=== PATIENT | female | born 1960 | race Caucasian/White ===

== ENCOUNTER 2019-02-19 18:56 | Emergency (ER) | payer MEDICAID, SELFPAY ==
[2019-02-19 19:00] VITALS: BP 155/71; PULSE 86; RESP 16; TEMP 36.5; O2SAT 100
--- NOTE | 2019-02-19 19:12 | ED.GENADUL_ITS ---
Discharge Plan Disposition Patient Disposition: HOME Condition: Stable Discharge Details Chief Complaint: Laceration Clinical Impression: Laceration of foot, left Primary Care Provider: Hayden Zapata ED Provider: Osei Zhang Home Meds and New Rx's Prescriptions: Continued cetirizine [Zyrtec] 10 MG tablet 10 mg PO DAILY RF: 0 Discharge Instructions Instructions: Laceration (ED) Additional Instructions: return in 7-10 days to see if the sutures are ready to be removed if redness is spreading from the wound or you have yellow/white discharge return to the emergency department Medical Decision Making Pt dropped a piece of ceramic on her left foot and sustained a 3cm v shaped laceration that is superficial to dorsal lateral surface. Full rom of the ankle and toes with intact sensation and no pain to suggest underlying fracture. will close with sutures and d/c home Differential Diagnosis Differential Diagnosis: laceration,abrasion HPI General Mode of arrival: ambulatory . Date/Time Provider Initiated Documentation: 02/19/19 18:59 . Limitations to Documentation: no limitations . Information obtained by: patient . History of Present Illness 58 year old F presents to the emergency department with the chief complaint of left foot laceration, described as moderate, Quality is described as aching, Patient started experiencing this hour(s) (1) and it has been constant. No relieving factors improve symptom(s), No exacerbating factors reported . Saturnino fink did receive the following treatments prior to arrival, none Related Data Home Medications Medication Instructions Recorded Confirmed cetirizine [Zyrtec] 10 mg PO DAILY 06/23/16 02/19/19 Allergies Allergy/AdvReac Type Severity Reaction Status Date / Time codeine Allergy Unverified 02/19/19 19:01 General Stated Complaint: Laceration VAZQUEZ: 4 Review of Systems All systems reviewed & are unremarkable except as noted in HPI and below Constitutional Constitutional: Denies chills, Denies fever(s) and Denies weakness Cardiovascular Cardiovascular: Denies chest pain and Denies dyspnea Respiratory Respiratory: Denies cough and Denies dyspnea Gastrointestinal Gastrointestinal: Denies abdominal pain, Denies nausea and Denies vomiting Neurologic Neurologic: Denies weakness Endocrine Endocrine: Denies cold intolerance PFSH Family History Mother Personal history of malignant neoplasm Father Alcohol abuse Personal history of malignant neoplasm mesothelioma Son No problems noted. Son No problems noted. Son No problems noted. Daughter No problems noted. Social History Smoking/Tobacco Use Status: Current every day Tobacco Type: cigarettes Alcohol Intake: current Alcohol Intake frequency: 0-2 drinks per day Alcohol type: beer Drug use: Never Do you feel safe in your relationship?: Yes Exam Const General: no acute distress Orientation: alert HENMT Head: normal to inspection Ears: external ears normal General nose exam: external nose normal Mouth: moist mucous membranes Eyes General: appearance normal, both eyes and all related structures Neck Neck: normal visual inspection Resp Effort & Inspection: normal respiratory effort and able to speak in complete sentences Cardio Rate: regular rate Skin General skin exam: no rashes or lesions noted Neuro General: alert and oriented x3 Extrem General: full ROM and normal capillary refill Psych Mental Status: mental status grossly normal Course Vital Signs Vital signs: Vital Signs Temperature 36.5 C 02/19/19 19:00 Pulse 86 02/19/19 19:00 Respiratory Rate 16 02/19/19 19:00 Blood Pressure 155/71 H 02/19/19 19:00 Pulse Oximetry 100 02/19/19 19:00 Temperature 36.5 C 02/19/19 19:00 Temperature Source Skin 02/19/19 19:00 Pulse 86 02/19/19 19:00 Respiratory Rate 16 02/19/19 19:00 Respiratory Effort Non-Labored 02/19/19 19:02 Blood Pressure 155/71 H 02/19/19 19:00 Pulse Oximetry 100 02/19/19 19:00 Pain Level 6 02/19/19 19:04 Procedures Laceration Laceration 1: Site: lower extremity Side (If applicable): left Size (cm): 3 Description: stellate Depth: simple, single layer Local Anesthetic: Lidocaine 2% Amount of anesthesia used (mL): 5 Pre-repair: wound explored and irrigated extensively Skin layer closed with: nylon Size (cm): 5-0 Number of sutures: 4 Technique: simple, interrupted
== END 2019-02-19 19:35 | disposition home or self-care (01) ==
PROVIDERS: Emergency Provider Emergency Medicine; PCP Family Medicine
DX: S91.312A Laceration without foreign body, left foot, initial encounter (principal); W45.8XXA Other foreign body or object entering through skin, initial encounter
CPT/HCPCS: 12002

== ENCOUNTER 2019-02-26 13:15 | Emergency (ER) | payer MEDICAID, SELFPAY ==
[2019-02-26 13:18] VITALS: BP 141/70; PULSE 103; RESP 16; TEMP 36.7; O2SAT 99
--- NOTE | 2019-02-26 13:27 | W.ED.GENAD ---
Discharge Plan Disposition Patient Disposition: HOME Condition: Stable Discharge Details Chief Complaint: Recheck Clinical Impression: Visit for suture removal, Cellulitis of foot, left Primary Care Provider: Hayden Zapata ED Provider: Nayely Hughes Home Meds and New Rx's Prescriptions: New cephalexin [Keflex] 500 mg capsule 500 mg PO TID 7 Days Qty: 21 RF: 0 Continued cetirizine [Zyrtec] 10 MG tablet 10 mg PO DAILY RF: 0 Discharge Instructions Instructions: Stitches Removal (ED), Cellulitis (ED) Additional Instructions: Keep wound clean and dry. The wound is most vulnerable once stitches removed so be careful not to do anything which may re-open the wound. Apply topical antibiotic ointment twice daily for the next 2 days. Finish the oral antibiotics as directed. Keep left leg elevated as much as possible over the next week to allow to heal. Follow up with your primary care doctor next week for re-evaluation. Return to the emergency department if you develop any worsening or new concerning symptoms. Stand Alone Forms: Work Release Discharge Data Discharge Date/Time-TO BE ENTERED AT DEPARTURE: 02/26/19 13:38 Discharge Physician: Nayely Hughes Medical Decision Making 59yo F presents for recheck of wound 7 days s/p suture placement for laceration due to broken ceramic bowl w/ complaint of pain, redness and occasional bleeding of wound. Pt appears nontoxic. She is afebrile. There are [address] with appropriate healing and crust but with mild tenderness/edema/erythema c/w early cellulitis. No evidence of abscess. NV intact. 4 sutures removed. Topical antibiotic ointment and dressing placed. D/w pt that is important that she rest and elevate her foot and avoid prolonged standing or walking as this will impede healing. She was given a work note. She was also given tetanus booster. Will send with PO antibiotics script. D/w pt that the ceramic bowl was broken in one piece and she denies known foreign body but she was offered an xray but declines at this time and will wait to see if symptoms improve with rest, elevation and antibiotics. She was advised to f/u with her pcp for re-evaluation and to return here with any worsening symptoms or new concerns. HPI General Mode of arrival: ambulatory. Date/Time Provider Initiated Documentation: 02/26/19 13:16. Limitations to Documentation: no limitations. Information obtained by: patient. HPI Narrative: Pt is a 58yo F who is 7 days s/p suture placement to her L foot after she cut herself with large edge of a broken ceramic bowl. She states she has been standing and walking on it everyday at work and the area has been bleeding occasionally with some pain and redness. She denies any known fever. She has not taken any antibiotics for this. She also states she was not given a tetanus and that she is unsure of her last tetanus but thinks it may have been over 10 years ago. Related Data Home Medications Medication Instructions Recorded Confirmed cetirizine [Zyrtec] 10 mg PO DAILY 06/23/16 02/26/19 cephalexin [Keflex] 500 mg PO TID 7 Days #21 cap 02/26/19 Previous Rx's Medication Instructions Recorded cephalexin [Keflex] 500 mg PO TID 7 Days #21 cap 02/26/19 Allergies Allergy/AdvReac Type Severity Reaction Status Date / Time codeine Allergy Unverified 02/26/19 13:23 General Stated Complaint: Recheck VAZQUEZ: 4 Review of Systems All systems reviewed & are unremarkable except as noted in HPI and below Constitutional Constitutional: Reports as per HPI, Denies chills and Denies fever(s) Eyes Eyes: Denies blurry vision ENT Ears, Nose, Mouth, and Throat: Denies dizziness, Denies sore throat and Denies throat swelling Cardiovascular Cardiovascular: Denies chest pain and Denies dyspnea Respiratory Respiratory: Denies cough and Denies dyspnea Gastrointestinal Gastrointestinal: Denies abdominal pain, Denies diarrhea and Denies vomiting Genitourinary Genitourinary: Denies hematuria and Denies dysuria Musculoskeletal Musculoskeletal: Denies back pain and Denies numbness Integumentary/Breasts Skin/Breast: Denies lesions and Denies rash Neurologic Neurologic: Denies dizziness, Denies focal weakness and Denies numbness Allergic/Immunologic Allergic/Immunologic: Denies throat swelling [facility], [facility] Medical History Alcohol dependence Cirrhosis Hepatitis C Thrombocytopenia Tobacco dependence Tobacco use disorder Surgical History Ligation of fallopian tube (04/28/87) Family History Mother Personal history of malignant neoplasm Father Alcohol abuse Personal history of malignant neoplasm mesothelioma Son No problems noted. Son No problems noted. Son No problems noted. Daughter No problems noted. Social History Smoking/Tobacco Use Status: Current every day Tobacco Type: cigarettes Alcohol Intake: current Alcohol Intake frequency: 0-2 drinks per day Alcohol type: beer Drug use: Never Substance use type: does not use Do you feel safe at home: Yes Do you feel safe in your relationship?: Yes Exam Const General: cooperative, healthy appearing and no acute distress HENMT Head: normal to inspection Mouth: oral mucosae normal Eyes General: appearance normal, both eyes and all related structures Neck Neck: normal visual inspection Resp Effort & Inspection: normal respiratory effort and able to speak in complete sentences Cardio Rate: regular rate Skin General skin exam: no rashes or lesions noted Neuro General: alert, awake and oriented x3 Motor: muscle tone normal throughout Extrem Ankle/foot/toe images: 1. 3cm c-shaped laceration with 4 prolene sutures noted in place. There is mild surrounding tenderness to palpation and erythema and very minimal edema around suture site but no induration, fluctuance, draining or active bleeding. No palpable foreign body. No red streaking. Other: L DP/PT pulses intact. Psych Appearance: grossly normal Affect: normal affect Course Vital Signs Vital signs: Vital Signs Temperature 98.1 F 02/26/19 13:18 Pulse 103 H 02/26/19 13:18 Respiratory Rate 16 02/26/19 13:18 Blood Pressure 141/70 H 02/26/19 13:18 Pulse Oximetry 99 02/26/19 13:18 Temperature 98.1 F 02/26/19 13:18 Pulse 103 H 02/26/19 13:18 Respiratory Rate 16 02/26/19 13:18 Respiratory Effort Non-Labored 02/26/19 13:21 Blood Pressure 141/70 H 02/26/19 13:18 Blood Pressure Position Sitting 02/26/19 13:18 Pulse Oximetry 99 02/26/19 13:18 Oxygen Delivery Method Room Air 02/26/19 13:18 Oxygen Flow Rate 0 02/26/19 13:18 Pain Level 5 02/26/19 13:18
== END 2019-02-26 13:38 | disposition home or self-care (01) ==
LOC: ER 13:32
PROVIDERS: Emergency Provider Physician Assistant; PCP Family Medicine
DX: L03.115 Cellulitis of right lower limb (principal); Z48.02 Encounter for removal of sutures
CPT/HCPCS: 90471; 99283

== ENCOUNTER 2019-06-28 10:19 | Emergency (ER) | payer MEDICAID, SELFPAY ==
[2019-06-28 10:24] VITALS: BP 147/73; PULSE 112; RESP 16; TEMP 36.6; O2SAT 97
--- NOTE | 2019-06-28 10:30 | DI.RAD_ITS ---
EXAM: XR RIBS LT W PA LAT CHEST INDICATION: fall/pain. COMPARISON: No exams were available for comparison TECHNIQUE: 2D digital imaging was performed. FINDINGS: No rib fracture or pneumothorax is seen. The heart size is normal. Emphysematous changes are seen in the upper lobes. No thoracic compression fractures are seen. IMPRESSION: Emphysematous changes. No acute abnormality. DATA REPOSITORY: RADIATION DOSE DELIVERED:
--- NOTE | 2019-06-28 11:39 | W.ED.GENAD ---
Discharge Plan Disposition Patient Disposition: HOME Condition: Stable Discharge Details Chief Complaint: Chest/Rib Clinical Impression: Rib injury Primary Care Provider: Hayden Zapata ED Provider: Pavan Hameed Home Meds and New Rx's Prescriptions: No Action cetirizine [Zyrtec] 10 MG tablet 10 mg PO DAILY RF: 0 Discharge Instructions Instructions: Rib Contusion (ED) Additional Instructions: Cool and/or warm compresses every 2 hours for 20 minutes. Gentle stretching as tolerated. [id number] Motrin as directed for discomfort. Please watch for new or worsening symptoms and return to the ER for any concerns. Work note with restrictions for lifting given. Please contact your primary care provider for prompt outpatient reevaluation Stand Alone Forms: Work Release Medical Decision Making Patient presents with mechanical fall on Friday now complaining of left rib pain worse with engagement of her core. She appears well, no acute distress. Will obtain x-ray of left ribs with PA view. She did have mild tachycardia in triage but no tachycardia upon my evaluation. Low suspicion for pneumothorax. Discussed benign x-ray with patient. She is relieved and would like a work note for limited duty, only lifting 10 pounds for the next week. She is agreeable to take [id number] medications such as Motrin. Medical Records Medical records reviewed: Yes I reviewed the patient's medical records. Imaging Data Radiologic Study: Imaging: X-Ray Radiologist's impression: Emphysematous changes, no acute abnormality HPI General Mode of arrival: ambulatory. Date/Time Provider Initiated Documentation: 06/28/19 10:32. Limitations to Documentation: no limitations. Information obtained by: patient. HPI Narrative: 59-year-old female who reports mechanical slip and fall landing on the ground of her home on Friday. She reports that she injured her left ribs, denies any other injury. Denies striking her head, loss of consciousness or headache now. She went to work today and was unable to lift heavy objects secondary to pain so work told her to come to the ER for further evaluation. Reports that the pain is moderate at rest but worse with movement, coughing, taking a deep breath. She reports a history to me of hepatitis C. Denies any other chronic medical problems. Related Data Home Medications Medication Instructions Recorded Confirmed cetirizine [Zyrtec] 10 mg PO DAILY 06/23/16 02/26/19 Allergies Allergy/AdvReac Type Severity Reaction Status Date / Time codeine Allergy Unverified 02/26/19 13:23 General Stated Complaint: Chest/Rib VAZQUEZ: 4 Review of Systems Constitutional Constitutional: Denies fever(s), Denies headache(s) and Denies weakness Eyes Eyes: Denies change in vision ENT Ears, Nose, Mouth, and Throat: Denies headache(s) Cardiovascular Cardiovascular: Denies chest pain and Denies dyspnea Respiratory Respiratory: Denies cough and Denies dyspnea Gastrointestinal Gastrointestinal: Denies abdominal pain, Denies nausea and Denies vomiting Musculoskeletal Musculoskeletal: Denies back pain, Denies numbness and Denies tingling Integumentary/Breasts Skin/Breast: Denies rash Neurologic Neurologic: Denies headache(s), Denies numbness, Denies tingling and Denies weakness [facility] Medical History Alcohol dependence Cirrhosis Hepatitis C Thrombocytopenia Tobacco dependence Tobacco use disorder Surgical History Ligation of fallopian tube (04/28/87) Family History Mother Personal history of malignant neoplasm Father Alcohol abuse Personal history of malignant neoplasm mesothelioma Son No problems noted. Son No problems noted. Son No problems noted. Daughter No problems noted. Social History Smoking/Tobacco Use Status: Current every day Tobacco Type: cigarettes Alcohol Intake: current Alcohol Intake frequency: 0-2 drinks per day Alcohol type: beer Drug use: Never Substance use type: does not use Do you feel safe at home: Yes Do you feel safe in your relationship?: Yes Exam Const General: cooperative, healthy appearing, comfortable and no acute distress Orientation: alert and awake HENNV Head: normal to inspection, normocephalic and atraumatic Mouth: moist mucous membranes Eyes Conjunctivae: conjunctivae normal Neck Neck: normal visual inspection, full ROM, trachea midline and supple Chest Chest: normal inspection of the chest, no crepitus and tenderness (Left anterior to mid axillary line below the breast, diffuse) Resp Effort & Inspection: normal respiratory effort and able to speak in complete sentences Auscultation: clear to auscultation bilaterally Cardio Rate: regular rate Rhythm: regular rhythm and other (Heart rate of 95, was 112 upon triage.) GI Inspection: normal to inspection Palpation: soft and nontender Back/Spine/Pelvis Back: No back tenderness Skin General skin exam: no rashes or lesions noted Neuro General: alert, awake, moves all extremities and no focal motor deficits Sensory Exam: no sensory deficits noted Psych Appearance: grossly normal Mental Status: mental status grossly normal Course Vital Signs Vital signs: Vital Signs Temperature 36.6 C 06/28/19 10:24 Pulse 112 H 06/28/19 10:24 Respiratory Rate 16 06/28/19 10:24 Blood Pressure 147/73 H 06/28/19 10:24 Pulse Oximetry 97 06/28/19 10:24 Temperature 36.6 C 06/28/19 10:24 Temperature Source Tympanic 06/28/19 10:24 Pulse 112 H 06/28/19 10:24 Respiratory Rate 16 06/28/19 10:24 Respiratory Effort Non-Labored 06/28/19 10:26 Respiratory Depth Normal 06/28/19 10:26 Respiratory Pattern Normal 06/28/19 10:26 Blood Pressure 147/73 H 06/28/19 10:24 Blood Pressure Position Sitting 06/28/19 10:24 Pulse Oximetry 97 06/28/19 10:24 Oxygen Delivery Method Room Air 06/28/19 10:24 Oxygen Flow Rate 0 06/28/19 10:24 Pain Level 8 06/28/19 10:26
== END 2019-06-28 12:00 | disposition home or self-care (01) ==
PROVIDERS: Emergency Provider Physician Assistant; PCP Family Medicine
DX: R07.81 Pleurodynia (principal); S29.8XXA Other specified injuries of thorax, initial encounter; W01.0XXA Fall on same level from slipping, tripping and stumbling without subsequent striking against object, initial encounter
CPT/HCPCS: 99283; 71046; 71100

== ENCOUNTER 2020-03-06 11:20 | Outpatient (CLI) | payer MEDICAID, SELFPAY ==
[2020-03-10 17:36] LABS: Patient Race White; SARS-CoV-2 RNA Undetected (Undetected); SARS-CoV-2 Specimen Source Nasal
== END 2020-03-06 11:40 ==
PROVIDERS: PCP Family Medicine; Visit Provider Nurse Practitioner
DX: R50.9 Fever, unspecified (principal)
CPT/HCPCS: U0003

== ENCOUNTER 2020-03-15 12:10 | Outpatient (REF) | payer MEDICAID, SELFPAY ==
[2020-03-15 19:41] LABS: HCT 36.9 % (36.0-46.0); HGB 12.6 g/dL (11.2-15.7); MCH 31.9 pg (27.0-33.0); MCHC 34.1 % (32.0-36.0); MCV 93.4 fL (80-95); MPV 10.7 fL (8.0-11.0); RBC 3.95 10^6/uL (3.93-5.22); RDW 12.4 % (11.7-14.6); RDW-SD 43.2 fL; WBC 4.19 10^3/uL (4.4-10.8)
[2020-03-15 19:46] LABS: INR 1.1 (0.9-1.1); Prothrombin Time 11.4 sec (9.3-11.0)
[2020-03-15 20:11] LABS: Platelet Count 47 10^3/uL (130-400)
[2020-03-15 20:13] LABS: ALT 214 U/L (14-59); AST 174 U/L (15-37); Albumin 3.3 g/dL (3.4-5.0); Alkaline Phosphatase 183 U/L (46-116); Anion Gap 12.2 mmol/L (3-11); BUN 10 mg/dL (7-18); Bilirubin, Total 0.8 mg/dL (0.2-1.0); CO2 25.8 mmol/L (21.0-32.0); CREATININE 0.63 mg/dL (0.55-1.02); Calcium 8.5 mg/dL (8.5-10.1); Chloride 103 mmol/L (98-107); Glucose 80 mg/dL (74-106); Magnesium 1.7 mg/dL (1.8-2.4); Potassium 3.8 mmol/L (3.5-5.1); Sodium 141 mmol/L (136-145); Total Protein 7.7 g/dL (6.4-8.2); Vitamin B12 726 pg/mL (193-986)
== END 2020-03-15 12:30 ==
LOC: NCHCN 12:10
PROVIDERS: PCP Family Medicine; Visit Provider Family Medicine
DX: F10.20 Alcohol dependence, uncomplicated (principal); K74.60 Unspecified cirrhosis of liver
CPT/HCPCS: 80053; 85027; 82607; 83735; 85610

== ENCOUNTER 2020-08-07 12:49 | Emergency (ER) | payer MEDICAID, SELFPAY ==
[2020-08-07 12:55] VITALS: BP 168/93; PULSE 15; RESP 16; TEMP 36.9; O2SAT 98
--- NOTE | 2020-08-07 13:06 | W.ED.GENAD ---
Discharge Plan Disposition Patient Disposition: HOME Condition: Improving Discharge Details Clinical Impression: Muscle strain of right lower leg, Sciatica Primary Care Provider: Hayden Zapata ED Provider: Nayely Hughes Home Meds and New Rx's Prescriptions: New methocarbamol 500 mg tablet 500 mg PO Q6H PRN (Reason: muscle spasm) Qty: 14 RF: 0 prednisone 20 mg tablet See Rx Instructions .ROUTE .COMPLEX Qty: 12 RF: 0 Continued cetirizine [Zyrtec] 10 MG tablet 10 mg PO DAILY RF: 0 Discharge Instructions Instructions: Muscle Strain (ED), Sciatica (ED) Additional Instructions: Alternate ice and heat to the affected area(s) several times daily for 20 minutes at a time. Alternate tylenol and motrin as needed and directed for pain. Take the tramadol for pain not relieved with Tylenol or ibuprofen. Your prescriptions have been sent electronically to your pharmacy. Call the pharmacy to make sure your prescriptions are ready before pickup. Take the prescriptions as directed. Follow-up with your primary care doctor in 1 week. Return to the emergency department with any worsening or new concerning symptoms. Discharge Data Discharge Date/Time-TO BE ENTERED AT DEPARTURE: 08/07/20 14:58 Discharge Physician: Nayely Hughes Medical Decision Making 60-year-old female with a history of alcohol abuse, hypertension, hepatitis C, tubal ligation presents for right leg pain extending from her right ankle up to her right buttock after lifting multiple heavy sandbags 3 days ago. No cauda equina symptoms. She appears nontoxic. She has no focal deficits. She has tenderness palpation to her right buttock, right posterior thigh, right calf and right lateral ankle. There is no evidence of cellulitis, trauma or deformity. She is neurovascularly intact. Do not see indication for x-rays as I do not suspect fracture. Appears most likely consistent with muscle strain versus sciatica or peripheral neuropathy. Patient referred for right leg ultrasound which was negative for DVT. She was given p.o. prednisone, p.o. oxycodone, p.o. Valium and IM Toradol. Patient reassessed and she feels better. Prescriptions for prednisone and methocarbamol sent electronically to her pharmacy. She was given a small bottle of tramadol to go. Advised on importance of alternating ice and heat. Advised to follow up with the primary care doctor for re-evaluation. Usual and customary return precautions given prior to discharge. Medical Records Medical records reviewed: Yes I reviewed the patient's medical records. Imaging Data Radiologic Study: Radiologist's impression: US LOWER EXTREMITY VENOUS RT CLINICAL HISTORY: pain R calf, ankle, thigh, r/o dvt TECHNIQUE: Grayscale, color, and doppler imaging of the deep venous system of the right lower extremity was performed. COMPARISON: No exams were available for comparison FINDINGS: There is no evidence of intraluminal thrombus and there is normal compression and augmentation demonstrated within the common femoral veis, femoral veis, and popliteal vein. In the ipsilateral calf the interrogated veins also exhibit normal compression/ augmentation properties. The ipsilateral saphenofemoral junction is patent. IMPRESSION: 1. No evidence of DVT in the right lower extremity. HPI General Mode of arrival: ambulatory. Date/Time Provider Initiated Documentation: 08/07/20 13:06. Limitations to Documentation: no limitations. Information obtained by: patient. HPI Narrative: Patient is a 60-year-old female with a history of alcohol dependence, cirrhosis, hepatitis C, tobacco use and tubal ligation presents for right leg pain radiating from her right ankle right to her right buttock after lifting multiple heavy sandbag by her friends. She states the bags are approximately 60 pounds. She states the pain started after lifting and she feels she pulled a muscle. She states the pain is worse in her ankle, right calf, right thigh and right buttock. She denies twisting her ankle. She took Aleve this morning without relief. She denies any bowel or bladder incontinence, abdominal pain, leg weakness or numbness or saddle anesthesia. Related Data Home Medications Medication Instructions Recorded Confirmed cetirizine [Zyrtec] 10 mg PO DAILY 06/23/16 02/26/19 methocarbamol 500 mg PO Q6H PRN #14 tab 08/07/20 prednisone See Rx Instructions .ROUTE 08/07/20 .COMPLEX #12 tab Previous Rx's Medication Instructions Recorded methocarbamol 500 mg PO Q6H PRN #14 tab 08/07/20 prednisone See Rx Instructions .ROUTE 08/07/20 .COMPLEX #12 tab Allergies Allergy/AdvReac Type Severity Reaction Status Date / Time codeine Allergy Unverified 08/07/20 12:58 General Stated Complaint: Nk/Back Pain VAZQUEZ: 4 Review of Systems All systems reviewed & are unremarkable except as noted in HPI and below Constitutional Constitutional: Reports as per HPI, Denies chills and Denies fever(s) Eyes Eyes: Denies blurry vision ENT Ears, Nose, Mouth, and Throat: Denies dizziness, Denies sore throat and Denies throat swelling Cardiovascular Cardiovascular: Denies chest pain and Denies dyspnea Respiratory Respiratory: Denies cough and Denies dyspnea Gastrointestinal Gastrointestinal: Denies abdominal pain, Denies diarrhea and Denies vomiting Genitourinary Genitourinary: Denies hematuria and Denies dysuria Musculoskeletal Musculoskeletal: Denies back pain, Denies numbness and Reports other (R leg pain) Integumentary/Breasts Skin/Breast: Denies lesions and Denies rash Neurologic Neurologic: Denies dizziness, Denies localized weakness and Denies numbness Allergic/Immunologic Allergic/Immunologic: Denies throat swelling [facility] Medical History (Updated 08/07/20 @ 14:41 by Nayely Hughes DO) Alcohol dependence Cirrhosis Hepatitis C Thrombocytopenia Tobacco dependence Tobacco use disorder Surgical History Ligation of fallopian tube (04/28/87) Family History Mother Personal history of malignant neoplasm Father Alcohol abuse Personal history of malignant neoplasm mesothelioma Son No problems noted. Son No problems noted. Son No problems noted. Daughter No problems noted. Social History Smoking/Tobacco Use Status: Current every day Tobacco Type: cigarettes Smoking risk assessment performed?: Yes Alcohol Intake: current Alcohol Intake frequency: 0-2 drinks per day Alcohol type: beer Drug use: Never Substance use type: does not use Do you feel safe at home: Yes Do you feel safe in your relationship?: Yes Exam Const General: cooperative and no acute distress HENMT Head: normal to inspection Face and sinus: normal facial exam Eyes General: appearance normal, both eyes and all related structures EOM: EOM intact bilaterally Neck Neck: normal visual inspection and No submandibular swelling Lymphatic: no lymphadenopathy noted Chest Chest: normal inspection of the chest and no tenderness Resp Effort & Inspection: normal respiratory effort and able to speak in complete sentences Auscultation: clear to auscultation bilaterally Cardio Rate: regular rate Rhythm: regular rhythm GI Inspection: normal to inspection Palpation: soft, not firm, not rigid and nontender Auscultation: normal bowel sounds Skin General skin exam: no rashes or lesions noted Neuro General: patient alert, patient awake, patient oriented x3, moves all extremities, no meningeal signs and no focal motor deficits Cognition: normal cognition Speech: speech normal Motor: muscle tone normal throughout and strength 5/5 throughout Sensory Exam: no sensory deficits noted Extrem General: normal to inspection, full ROM, capillary refill normal, no calf tenderness bilaterally and no edema Upper/lower leg/hip images: 1. Tenderness to palpation to right superior and middle buttocks. Tenderness palpation to right posterior thigh, right calf and right lateral ankle. There is no evidence of edema, ecchymosis, erythema, crepitus, deformity. She has full range of motion without limitation or deformity. Other: Right DP/PT pulses intact. Psych Appearance: grossly normal Mental Status: mental status grossly normal Speech and Movement: speech and movement normal Affect: normal affect Course Vital Signs Vital signs: Vital Signs Temperature 98.4 F 08/07/20 12:55 Pulse 15 L 08/07/20 12:55 Respiratory Rate 16 08/07/20 12:55 Blood Pressure 168/93 H 08/07/20 12:55 Pulse Oximetry 98 08/07/20 12:55 Temperature 98.4 F 08/07/20 12:55 Temperature Source Oral 08/07/20 12:55 Pulse 15 L 08/07/20 12:55 Respiratory Rate 16 08/07/20 12:55 Respiratory Effort Non-Labored 08/07/20 13:01 Blood Pressure 168/93 H 08/07/20 12:55 Blood Pressure Position Sitting 08/07/20 12:55 Pulse Oximetry 98 08/07/20 12:55 Oxygen Delivery Method Room Air 08/07/20 12:55 Oxygen Flow Rate 0 08/07/20 12:55 Pain Level 10 08/07/20 12:59
--- NOTE | 2020-08-07 13:15 | DI.US_ITS ---
EXAM: US LOWER EXTREMITY VENOUS RT CLINICAL HISTORY: pain R calf, ankle, thigh, r/o dvt TECHNIQUE: Grayscale, color, and doppler imaging of the deep venous system of the right lower extrem ity was performed. COMPARISON: No exams were available for comparison FINDINGS: There is no evidence of intraluminal thrombus and there is normal compression and augmentation demons trated within the common femoral veis, femoral veis, and popliteal vein. In the ipsilateral calf the interrogated veins also exhibit normal compression/ augmentation properti es. The ipsilateral saphenofemoral junction is patent. IMPRESSION: 1. No evidence of DVT in the right lower extremity. 2. DATA REPOSITORY:
[2020-08-07] MEDS: diazePAM 5 MG TAB PO (13:36)
[2020-08-07] MEDS: oxyCODONE 5 MG TAB PO (13:36)
[2020-08-07] MEDS: Ketorolac 60 MG/2 ML VIAL IM (13:36)
[2020-08-07] MEDS: predniSONE 20 MG TAB 60 MG PO (14:47)
[2020-08-07 14:53] VITALS: BP 143/76; PULSE 92; RESP 16; TEMP 36.5; O2SAT 97
[2020-08-07 14:55] VITALS: BP 143/76; PULSE 92; RESP 16; TEMP 36.5; O2SAT 97
== END 2020-08-07 14:58 | disposition home or self-care (01) ==
PROVIDERS: Emergency Provider Physician Assistant; PCP Family Medicine
DX: S86.811A Strain of other muscle(s) and tendon(s) at lower leg level, right leg, initial encounter (principal); M54.31 Sciatica, right side; X50.0XXA Overexertion from strenuous movement or load, initial encounter
CPT/HCPCS: 96372; 99284; 93971; 99283; J1885; J7512

== ENCOUNTER 2021-05-23 12:13 | Outpatient (REF) | payer MEDICAID, SELFPAY ==
--- NOTE | 2021-05-23 10:15 | SKI_PTH ---
PATIENT: Nidhi Beyer LOC: [facility]#:[id number] AGE/SX: 61/F ROOM: RE05/23/[address]: Hayden Zapata : 1960 BED: DIS: 05/23/2021 SPEC #: [id number] RECD: 05/23/21 16:57 STATUS: LETTY MCGUIRE #: [id number] JOHN: 05/23/21 10:[address]: Hayden Zapata DEPT: Surgical Specimen RECD BY: Alicia Ortiz Tissues: 1 - SKIN BIOPSY(SHAVE/PUNCH) Procedures: SKIN LEVEL 4 Comments: [id number]
[2021-05-23 15:07] LABS: HCT 37.4 % (36.0-46.0); HGB 12.7 g/dL (11.2-15.7); MCH 32.4 pg (27.0-33.0); MCV 95.4 fL (80-95); MPV 11.4 fL (8.0-11.0); Platelet Count 31 10^3/uL (130-400); RBC 3.92 10^6/uL (3.93-5.22); RDW 12.9 % (11.7-14.6); RDW-SD 45.2 fL; WBC 3.49 10^3/uL (4.4-10.8)
[2021-05-23 15:25] LABS: ALT 183 U/L (14-59); AST 164 U/L (15-37); Albumin 3.3 g/dL (3.4-5.0); Alkaline Phosphatase 159 U/L (46-116); Anion Gap 10.9 mmol/L (3-11); BUN 10 mg/dL (7-18); Bilirubin, Total 0.6 mg/dL (0.2-1.0); CO2 24.1 mmol/L (21.0-32.0); CREATININE 0.6 mg/dL (0.55-1.02); Calcium 8.5 mg/dL (8.5-10.1); Chloride 102 mmol/L (98-107); Glucose 96 mg/dL (74-106); Potassium 4.1 mmol/L (3.5-5.1); Sodium 137 mmol/L (136-145); Total Protein 7.5 g/dL (6.4-8.2)
== END 2021-05-23 12:14 | disposition home or self-care (01) ==
LOC: NCHCN 12:13
PROVIDERS: PCP Family Medicine; Visit Provider Family Medicine
DX: K74.69 Other cirrhosis of liver (principal); D22.5 Melanocytic nevi of trunk; C43.59 Malignant melanoma of other part of trunk
CPT/HCPCS: 80053; 85027; 88305

== ENCOUNTER 2024-12-04 19:01 | Outpatient (REF) | payer MEDICAID, SELFPAY ==
[2024-12-04 21:59] LABS: EPI 027-NAP1-B1 PRESUMPTIVE NEGATIVE
[2024-12-05 21:16] LABS: Campylobacter PCR Negative (Negative); Shiga Toxin PCR Negative (Negative); Shigella/Enteroinvasive Ecoli Negative (Negative)
== END 2024-12-04 19:02 | disposition home or self-care (01) ==
LOC: LBN 19:01
PROVIDERS: PCP Family Medicine; Visit Provider Physician Assistant Medical
DX: R19.7 Diarrhea, unspecified (principal)
CPT/HCPCS: 87015; 87269; 87272; 87505

== ENCOUNTER 2025-02-08 22:01 | Emergency (ER) | payer MEDICAID, SELFPAY ==
[2025-02-08] VITALS (16 sets, daily range): BP systolic 103–171; BP diastolic 48–79; PULSE 72–95; RESP 9–23; TEMP 35.7; O2SAT 93–99
--- NOTE | 2025-02-08 22:15 | DI.CT_ITS ---
Exam(s) CT HEAD FACIAL WO EXAM: CT HEAD FACIAL WO CLINICAL HISTORY: right temporal and ocular pain/RED. TECHNIQUE: Imaging Protocol: Axial computed tomography images with coronal and sagittal reformatted images were created and reviewed COMPARISON: No exams were available for comparison FINDINGS: CT Head: Ventricles and Extra axial spaces: Normal in size and morphology for the patient's age. There is a 1.5 x 1.2 cm calcified extra-axial mass along the left parietal convexity most suggestive of a meningioma. Hemorrhage: None. Cerebral parenchyma: There is no evidence of an acute territorial infarct. There are subtle areas of decreased attenuation in the white matter suggesting chronic microvascular ischemic disease. Midline shift: None. Brainstem/Cerebellum: Normal. Calvarium: Normal. Visualized Paranasal sinuses/Mastoids: Clear. Soft Tissues: Unremarkable. CT Face: Facial Bones: No definite fracture is noted in facial bones. Sinuses and Mastoids: Unremarkable. Globes, extraocular muscles, optic nerves and retrobulbar fat: Normal. Upper aerodigestive tract: Normal. Mandible and bilateral temporomandibular joints: Normal. Soft tissues: Normal. IMPRESSION: 1. No acute intracranial process. 2. No acute facial fracture. 3. 1.5 x 1.2 cm calcified extra-axial mass along the left parietal convexity most suggestive of a meningioma. A nonemergent MRI without and with contrast may be considered for further characterization. 4. The preliminary [facility] report was reviewed. Unexpected findings RADIATION DOSE DELIVERED: 1,211.22mGy.cm Total DLP DATA REPOSITORY: All CT scans at this facility are submitted to the National Radiology Data Registry (NRDR) Dose Index Registry (DIR) with the [employer] (ACR). RADIATION OPTIMIZATION: All CT scans at this facility use at least one of these dose optimization techniques: automated exposure control; mA and/or kV adjustment per patient size (includes targeted exams where dose is matched to clinical indication); or iterative reconstruction.
[2025-02-08] MEDS: methylPREDNISolone SUCC 125 MG VIAL IVP (22:36)
[2025-02-08] MEDS: diphenhydrAMINE 50 MG/ML VIAL 25 MG IVP (22:38)
[2025-02-08] MEDS: Prochlorperazine 10 MG/2 ML VIAL IVP (22:39)
[2025-02-08] MEDS: Acetaminophen 500 MG TAB 1000 MG PO (22:41)
[2025-02-08 22:42] LABS: Abs Immature Grans 0.01 10^3/uL (0.0-0.06); HCT 34.8 % (36.0-46.0); HGB 11.7 g/dL (11.2-15.7); Immature Grans % 0.2 %; MCH 31.1 pg (27.0-33.0); MCHC 33.6 % (32.0-36.0); MCV 93 fL (80-95); MPV 11.1 fL (8.0-11.0); RBC 3.76 10^6/uL (3.93-5.22); RDW 12.9 % (11.7-14.6); RDW-SD 43.9 fL; WBC 4.39 10^3/uL (4.4-10.8)
[2025-02-08] MEDS: Normal Saline 1,000 ML 1000 ML IV (22:43)
[2025-02-08 22:56] LABS: ALT 179 U/L (14-59); AST 169 U/L (15-37); Albumin 3.0 g/dL (3.4-5.0); Alkaline Phosphatase 152 U/L (46-116); Anion Gap 9.0 mmol/L (3-11); BUN 10 mg/dL (7-18); Bilirubin, Total 0.9 mg/dL (0.2-1.0); CO2 26.0 mmol/L (21.0-32.0); Calcium 8.5 mg/dL (8.5-10.1); Chloride 106 mmol/L (98-107); Estimated GFR 100.17 (mL/min/1.73m2); Glucose 82 mg/dL (74-106); Potassium 3.4 mmol/L (3.5-5.1); Sodium 141 mmol/L (136-145); Total Protein 7.1 g/dL (6.4-8.2)
[2025-02-08 23:01] LABS: Platelet Count 37 10^3/uL (130-400)
--- NOTE | 2025-02-08 23:03 | W.ED.GENAD ---
Discharge Plan Disposition Patient Disposition: Home Condition: Good Discharge Details Clinical Impression: Headache Primary Care Provider: Hayden Zapata ED Provider: Demetrio Tavarez Home Meds and New Rx's Prescriptions: No Action cetirizine [Zyrtec] 10 MG tablet 10 mg PO DAILY Discharge Instructions Instructions: Headache, Adult ED Additional Instructions: At this time your CAT scan of your head shows no significant abnormalities. Your headache has improved. If you notice any worsening of your symptoms, or any new symptoms such as vomiting, diarrhea, fever, chills, shortness of breath, chest pain, numbness, weakness, or fainting , please return immediately to the emergency department for reevaluation. Please follow up with your primary care provider as soon as possible for reassessment and reevaluation. As always, it was a pleasure participating in your medical care today. Referrals: Hayden Zapata [Primary Care Provider, Medicine] [facility] General Date/Time Provider Initiated Documentation: 02/08/25 22:07. HPI Narrative: 64-year-old female with no diagnosed past medical history, who presents today for evaluation of right sided orbital headache. Patient states that last 1/2 days she had the symptoms. It started behind her right eye, and extends from her right ear in the temporal region towards the right orbit. No pain in the eyeball itself. She does admit to some mild blurriness but this is chronic as she does have cataracts and she states that this is unchanged. She did have some alcohol this evening, this did not change her headache. Headache is achy throbbing in nature. It was gradual in onset. The symptoms are made worse with light, loud noise and smell. She denies any vision changes otherwise. She denies any trauma. She denies a history of glaucoma. No surgeries on the eye in the past. No other complaints. No improving factors for the symptoms. The patient denies any headache red flags of worst headache of life, thunderclap headache, neck pain, fever, chills, concerning family history of polycystic kidney disease, Marfan syndrome, Betty-Danlos syndrome, abdominal aortic aneurysm, aortic dissection, or intracranial aneurysm. Related Data Home Medications ?Medication ?Instructions ?Recorded ?Confirmed cetirizine 10 mg tablet (Zyrtec) 10 mg PO DAILY 06/23/16 02/08/25 Allergies Allergy/AdvReac Type Severity Reaction Status Date / Time codeine Allergy Skin Rash Unverified 02/08/25 22:08 coconut AdvReac Mild Skin Rash Verified 02/08/25 22:08 General Stated Complaint: Headache VAZQUEZ: 3 Exam Narrative Exam Narrative: 1.Const: Well-nourished, Well-developed, appearing stated age 2.Eyes: PERRL, no conjunctival injection, and symmetrical lids. Patient does have notable cataracts. Please see ENT 3.ENT: Atraumatic external nose and ears. Moist MM. Neck: Symmetric, trachea midline, No thyromegaly. No evidence of hemotympanum or hyphema. No evidence of otitis media. No rash or signs of shingles. No ulcers on the eyeball. No conjunctival injection. Patient demonstrates good movement of cervical neck. There is no nuchal rigidity, no nuchal tenderness. Patient is able to flex the neck without any difficulty or significant pain. Negative Kernig's and Brudzinski sign. 4.CVS: +S1/S2, Peripheral pulses 2+ and equal in all extremities. Brisk capillary refill in all extremities. 5.RESP: Unlabored respiratory effort. Clear to auscultation bilaterally. No wheezes rales or rhonchi 6.GI: Soft, Nontender/Nondistended, No hepatosplenomegaly. No guarding or rebound. 7.MSK: Normocephalic/Atraumatic, Extremities w/o deformity or ttp No cyanosis or clubbing, Normal movement of all extremities 8.Skin: Warm, Dry. No rashes or lesions. 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 Sensation grossly intact, no focal neurologic deficits. All 6 cardinal planes of vision are fully intact. No evidence of rotatory or vertical nystagmus. The patient demonstrated a normal rrlkqn-[id number]-ejzqal, good dexterity. There was no evidence of dysdiadochokinesia. Patient was able to ambulate without difficulty. There was no wide-based gait. Romberg testing was normal. [id number]-nx-cqmz testing was normal. Sensation was intact bilaterally as well as muscle strength bilaterally for all extremities. Patient was able to verbalize butter cup with no slurring, or miss pronunciation. 10.Psych: (AAO) x3. Appropriate mood and affect Course Vital Signs Vital signs: Vital Signs Temperature 35.7 C L 10/14/25 22:01 Pulse 90 02/08/25 22:01 Respiratory Rate 18 02/08/25 22:01 Blood Pressure 171/72 H 02/08/25 22:01 Pulse Oximetry 99 02/08/25 22:01 Temperature 35.7 C L 02/08/25 22:01 Temperature Source Temporal Artery Scan 02/08/25 22:01 Pulse 90 02/08/25 22:01 Respiratory Rate 18 02/08/25 22:01 Blood Pressure 171/72 H 02/08/25 22:01 Pulse Oximetry 99 02/08/25 22:01 Oxygen Delivery Method Room Air 02/08/25 22: Oxygen Flow Rate 0 02/08/25 22: Pain Level 9 02/08/25 22:01 Lab/Test Results Lab/Test Results: Laboratory Tests Range/Units 02/08/25 22:28 WBC (4.4-10.8) 10^3/uL 4.39 L RBC (3.93-5.22) 10^6/uL 3.76 L Hgb (11.2-15.7) g/dL 11.7 Hct (36.0-46.0) % 34.8 L MCV (80-95) fL 93 MCH (27.0-33.0) pg 31.1 MCHC (32.0-36.0) % 33.6 RDW (11.7-14.6) % 12.9 Plt Count (130-400) 10^3/uL 37 L MPV (8.0-11.0) fL 11.1 H Immature Gran % % 0.2 Neutrophils % % 27.3 Lymphocytes % % 63.8 Monocytes % % 7.1 Eosinophils % % 1.1 Basophils % % 0.5 Nucleated RBC % (0.0-0.3) % 0.0 Absolute Neutrophils (1.2-6.7) 10^3/uL 1.20 Absolute Lymphocytes (1.2-3.4) 10^3/uL 2.80 Absolute Monocytes (0.1-0.8) 10^3/uL 0.31 Absolute Eosinophils (0.0-0.7) 10^3/uL 0.05 Absolute Basophils (0.0-0.2) 10^3/uL 0.02 Sodium (136-145) mmol/L 141 Potassium (3.5-5.1) mmol/L 3.4 L Chloride (98-107) mmol/L 106 Carbon Dioxide (21.0-32.0) mmol/L 26.0 Anion Gap (3-11) mmol/L 9.0 BUN (7-18) mg/dL 10 Creatinine (0.55-1.02) mg/dL 0.6 Est GFR (CKD-EPI 2020) (mL/min/1.73m2) 100.17 Glucose (74-106) mg/dL 82 Calcium (8.5-10.1) mg/dL 8.5 Total Bilirubin (0.2-1.0) mg/dL 0.9 AST (15-37) U/L 169 H ALT (14-59) U/L 179 H Alkaline Phosphatase (46-116) U/L 152 H Total Protein (6.4-8.2) g/dL 7.1 Albumin (3.4-5.0) g/dL 3.0 L Medical Decision Making 64-year-old female with no diagnosed past medical history that she reports but does have an alleged history of hepatitis C, hepatic cirrhosis, hypertension, and alcohol abuse, who presents today for evaluation of right sided orbital headache. Patient states that last 1/2 days she had the symptoms. It started behind her right eye, and extends from her right ear in the temporal region towards the right orbit. No pain in the eyeball itself. She does admit to some mild blurriness but this is chronic as she does have cataracts and she states that this is unchanged. She did have some alcohol this evening, this did not change her headache. Headache is achy throbbing in nature. It was gradual in onset. The symptoms are made worse with light, loud noise and smell. She denies any vision changes otherwise. She denies any trauma. She denies a history of glaucoma. No surgeries on the eye in the past. No other complaints. No improving factors for the symptoms. The patient denies any headache red flags of worst headache of life, thunderclap headache, neck pain, fever, chills, concerning family history of polycystic kidney disease, Marfan syndrome, Betty-Danlos syndrome, abdominal aortic aneurysm, aortic dissection, or intracranial aneurysm. Exam demonstrates well-appearing female, unable to perform internal eye ophthalmologic exam secondary to notable cataracts. Tonometry was recorded and the patient has an ocular pressure on the right of 15. No evidence of shingles or ulcerations on the eyeball. No nuchal rigidity or neck stiffness to suggest meningitis. No evidence of otitis media. No temporal artery tenderness. Differential is broad but includes migraine headache, dehydration, less likely brain tumor. No evidence to suggest giant cell arteritis. Will get CT imaging, give migraine cocktail, give NSAIDs, monitor closely and reassess. 2:[address] scan shows no evidence of acute process per radiology. No evidence of tumor or mass. Laboratory workup stable, she does have low platelets at 37 but this appears to be chronic. She also has transaminitis which is also chronic and unchanged. On reassessment after medications patient has complete resolution of her head pain. No further headache or symptomatology whatsoever. She feels well. Patient does not have a ride and she will remain here until our CT is available. Patient is notably clinically sober. Patient will be discharged home. No evidence of at that this time of acute angle-closure glaucoma, shingles, ESR and CRP are normal with no evidence to suggest giant cell temporal arteritis. Discussed red flags for which to return. I have extensively reviewed the treatment plan and discharge instructions with the patient. I have addressed all patient concerns at this time. The patient was made aware of what symptoms to monitor for that would warrant a return to the emergency department. Discussed the plan with the patient, they demonstrate verbal understanding and agreement with our assessment and plan at this time. The documentation in this chart was dictated using [employer] dictation software. Please excuse any dictation errors. FINDINGS: Brain: Periventricular and subcortical white matter areas of hypoattenuation, likely chronic small vessel ischemic change, demyelination, or gliosis. No intracranial mass, acute hemorrhage, or acute infarction. Cerebral ventricles: No ventriculomegaly. Paranasal sinuses: Visualized sinuses are unremarkable. No fluid levels. Mastoid air cells: Normal as visualized. Bones: Unremarkable. No acute fracture. Soft tissues: Unremarkable. IMPRESSION: No acute intracranial abnormality FINDINGS: Paranasal sinuses: No air-fluid levels. Orbital cavities: Orbits are normal. Globes are unremarkable. Bones: No acute fracture. Soft tissues: Unremarkable. IMPRESSION: No acute abnormality. Thank you for allowing us to participate in the care of your patient. Dictated and Authenticated by: Bart Fung MD 02/08/2025 11:59 PM Eastern Time ([place] & [place] [facility] All Active Problems (Updated 02/09/25 @ 02:46 by Demetrio Tavarez DO) Headache (Acute) Sciatica (Acute) Muscle strain of right lower leg (Acute) Fever (Acute) Medical History (Updated 02/09/25 @ 02:46 by Demetrio Tavarez DO) Tobacco use disorder Thrombocytopenia Cirrhosis Hepatitis C Tobacco dependence Alcohol dependence Surgical History Ligation of fallopian tube (04/28/87) Family History Mother Personal history of malignant neoplasm Father Alcohol abuse Personal history of malignant neoplasm mesothelioma Son No problems noted. Son No problems noted. Son No problems noted. Daughter No problems noted. Social History Smoking/Tobacco Use Status: Current every day Tobacco Type: cigarettes Smoking risk assessment performed?: Yes Alcohol Intake: current Alcohol Intake frequency: 0-2 drinks per day Alcohol type: beer Drug use: Never Substance use type: does not use Do you feel safe at home: Yes Do you feel safe in your relationship?: Yes PAWSS Have you Been Recently Intoxicated or Drunk Within the Last 30 days?: Yes Have you Ever Experienced Previous Episodes of Alcohol Withdrawal?: No Have you ever Experienced Withdrawal Seizures?: No Have you ever Experienced Delirium Tremens(DT)s?: No Have you ever undergone Alcohol Rehabilitation Treatment (i.e, inpt ot outpatient treatment programs)?: No Have you ever Experienced Blackouts?: No Have you ever Combined Alcohol with other Downers within the last 90 days?: No Have you ever Combined Alcohol with any other Substance of Abuse during the last 90 days?: No Positive Blood Alcohol level on Presentation? [PCS.BAL]: Yes Evidence of Increased Autonomic Activity (i.e. HR>120, tremor, sweating, agitation, nausea)?: No Result: 2
[2025-02-08 23:15] LABS: ESR 15 mm/hr (0-30)
[2025-02-08 23:27] LABS: C-Reactive Protein < 0.50 mg/dL (<or=0.5)
[2025-02-09] VITALS (50 sets, daily range): BP systolic 105–162; BP diastolic 55–88; PULSE 69–90; RESP 18; O2SAT 91–97
--- NOTE | 2025-02-09 | DI.VRAD_ITS ---
PROCEDURE INFORMATION: Exam: CT Head Without Contrast Exam date and time: 02/08/2025 10:48 PM Age: 64 years old Clinical indication: Headache and other: Right temporal and ocular pain/hernandez; Headache and ocular pain and other: Right temporal and ocular pain/hernandez; Type not specified TECHNIQUE: Imaging protocol: Computed tomography of the head without contrast. COMPARISON: No relevant prior studies available. FINDINGS: Brain: Periventricular and subcortical white matter areas of hypoattenuation, likely chronic small vessel ischemic change, demyelination, or gliosis. No intracranial mass, acute hemorrhage, or acute infarction. Cerebral ventricles: No ventriculomegaly. Paranasal sinuses: Visualized sinuses are unremarkable. No fluid levels. Mastoid air cells: Normal as visualized. Bones: Unremarkable. No acute fracture. Soft tissues: Unremarkable. IMPRESSION: No acute intracranial abnormality. PROCEDURE INFORMATION: Exam: CT Maxillofacial Without Contrast Exam date and time: 02/08/2025 10:48 PM Age: 64 years old Clinical indication: Headache and other: Right temporal and ocular pain/hernandez; Headache and ocular pain and other: Right temporal and ocular pain/hernandez; Type not specified TECHNIQUE: Imaging protocol: Computed tomography of the face without contrast. COMPARISON: No relevant prior studies available. FINDINGS: Paranasal sinuses: No air-fluid levels. Orbital cavities: Orbits are normal. Globes are unremarkable. Bones: No acute fracture. Soft tissues: Unremarkable. IMPRESSION: No acute abnormality. Dictated and Authenticated by: Bart Fung MD. Orderin Corby Atkinson MD
== END 2025-02-09 06:26 | disposition home or self-care (01) ==
LOC: ER 02-09 06:28
PROVIDERS: Emergency Provider Student in an Organized Health Care Education/Training Program; PCP Family Medicine
DX: R51.9 Headache, unspecified (principal); I10 Essential (primary) hypertension
CPT/HCPCS: 80053; 85652; 96361; 96374; 96375; 99284; 70450; 70486; 85025; 86140; 99283; J0780; J1200; J2919

== ENCOUNTER 2025-02-23 10:36 | Outpatient (REF) | payer MEDICAID, SELFPAY ==
[2025-02-23 15:14] LABS: Abs Immature Grans 0.01 10^3/uL (0.0-0.06); HCT 38.7 % (36.0-46.0); HGB 13.2 g/dL (11.2-15.7); Immature Grans % 0.3 %; MCH 32.3 pg (27.0-33.0); MCHC 34.1 % (32.0-36.0); MCV 95 fL (80-95); MPV 10.8 fL (8.0-11.0); RBC 4.09 10^6/uL (3.93-5.22); RDW 12.7 % (11.7-14.6); RDW-SD 44.6 fL; WBC 3.84 10^3/uL (4.4-10.8)
[2025-02-23 15:29] LABS: ALT 172 U/L (14-59); AST 162 U/L (15-37); Albumin 3.3 g/dL (3.4-5.0); Alkaline Phosphatase 151 U/L (46-116); Anion Gap 8.4 mmol/L (3-11); BUN 8 mg/dL (7-18); Bilirubin, Total 1.2 mg/dL (0.2-1.0); CO2 27.6 mmol/L (21.0-32.0); Calcium 8.9 mg/dL (8.5-10.1); Calculated LDL 78 mg/dL (<100); Chloride 101 mmol/L (98-107); Cholesterol 133 mg/dL (<200); Estimated GFR 104.67 (mL/min/1.73m2); Glucose 99 mg/dL (74-106); HDL Cholesterol 40 mg/dL (>or=50); Potassium 3.8 mmol/L (3.5-5.1); Sodium 137 mmol/L (136-145); TSH 2.43 uIU/mL (0.36-3.74); Total Protein 7.6 g/dL (6.4-8.2); Triglyceride 79 mg/dL (<150)
[2025-02-23 15:42] LABS: Platelet Count 45 10^3/uL (130-400); RBC Morphology Normal
[2025-02-23 15:47] LABS: COMMENT (LAB VIEW ONLY) 57.80 mg/dL; Microalb ug/mg Crea 5.2 ug/mg Cr
== END 2025-02-23 10:37 | disposition home or self-care (01) ==
LOC: NCHCN 10:36
PROVIDERS: PCP Family Medicine
DX: I10 Essential (primary) hypertension (principal); Z13.220 Encounter for screening for lipoid disorders; D64.9 Anemia, unspecified; Z13.29 Encounter for screening for other suspected endocrine disorder
CPT/HCPCS: 80053; 80061; 82043; 82570; 84443; 85025

== ENCOUNTER → 2025-03-02 02:19 | Outpatient (CLI) | payer MEDICAID, SELFPAY ==
--- NOTE | 2025-03-02 13:34 | DI.CTLCSR_ITS ---
Exam(s) CT CHEST LUNG CANCER SCREEN EXAM: CT CHEST LUNG CANCER SCREEN CLINICAL HISTORY: NICOTINE DEPENDENCE F17.210. TECHNIQUE: Imaging Protocol: Low Dose Technique CONTRAST MATERIAL: None COMPARISON: CR XR RIBS LT W PA LAT CHEST from 06/28/2019 FINDINGS: CHEST: LUNGS: There is a small benign-appearing 3 millimeter nodule in the right lower lobe (series 4/image 68). No other focal right lung findings. There is a small 3 millimeter noncalcified nodule in the lateral aspect of the left upper lobe (series 4/image 70). No confluent infiltrates nor pleural effusions. No significant focal findings in the trachea and mainstem bronchi. MEDIASTINUM: There is no obvious hilar nor mediastinal adenopathy. CARDIAC: Heart size is normal. There is no pericardial effusion.Caliber of the thoracic aorta is within normal limits. OTHER: OSSEOUS: No significant osseous lesions.. IMPRESSION: 1. Single 3 millimeter benign-appearing nodule in each breast as described above. 2. No obvious intrathoracic adenopathy. No pleural effusions 3. Lung RADS Cat 2 - Benign Appearance / Behavior: Nodules with a very low likelihood of becoming a clinically active cancer due to size or lack of growth Lung-RADS 1.0 CATEGORIES: Category 0 - Prior chest CT exam(s) being located for comparison. Category 1 - Annual screening in 12 months. No nodules or definitely benign nodules. Category 2 - Annual screening in 12 months. Benign appearance. Nodules with low likelihood of becoming active cancer. Category 3 - 6-month follow-up. Probably benign. Short-term follow-up suggested. Nodules with low likelihood of becoming active cancer. Category 4A - 3-month follow-up and CT/PET if >8 mm in size. Suspicious finding. Findings which require additional testing. Category 4B - Findings which require additional testing and tissue sampling. Category 4X - Category 3 or 4 nodules with additional features or imaging findings that increases the suspicion of malignancy. Modifier S- Potentially clinically significant findings (non lung cancer) RADIATION DOSE DELIVERED: 20.21mGy.cm Total DLP DATA REPOSITORY: All CT scans at this facility are submitted to the National Radiology Data Registry (NRDR) Dose Index Registry (DIR) with the [employer] ([employer]). RADIATION OPTIMIZATION: All CT scans at this facility use at least one of these dose optimization techniques: automated exposure control; mA and/or kV adjustment per patient size (includes targeted exams where dose is matched to clinical indication); or iterative reconstruction.
== END ==
LOC: DI 02:19
PROVIDERS: PCP Family Medicine
DX: F17.210 Nicotine dependence, cigarettes, uncomplicated (principal)
CPT/HCPCS: 71271

== ENCOUNTER 2025-03-02 03:53 | Outpatient (CLI) | payer MEDICAID, SELFPAY ==
[2025-03-02] MEDS: Inhaler, Assist Device 1 EACH MC (14:43)
[2025-03-02] MEDS: Levalbuterol HFA 15 GM INH 4 PUFF IH (14:44)
--- NOTE | 2025-03-03 08:03 | W.PFT ---
Date of service: 03/02/25 Time of Service: 13:41 Pulmonary Function Test Result Indications: COPD Impression 1. Good patient effort was noted. ATS standards for reproducibility were met. 2. Spirometry showed mild obstructive lung disease with an FEV1 of 86% (2.17 L) 3. Following the administration of a bronchodilator there was not a significant response 4. TLC was normal. No evidence of restrictive lung disease 5. Was unable to complete DLCO testing
== END 2025-03-02 03:54 | disposition home or self-care (01) ==
LOC: RT 03:53
PROVIDERS: PCP Family Medicine
DX: J44.9 Chronic obstructive pulmonary disease, unspecified (principal)
CPT/HCPCS: 94060; 94726; 94729

== ENCOUNTER 2025-03-16 15:39 | Outpatient (REF) | payer MEDICAID, SELFPAY ==
[2025-03-16 21:30] LABS: Abs Immature Grans 0.01 10^3/uL (0.0-0.06); HCT 40.5 % (36.0-46.0); HGB 13.7 g/dL (11.2-15.7); Immature Grans % 0.2 %; MCH 31.3 pg (27.0-33.0); MCHC 33.8 % (32.0-36.0); MCV 93 fL (80-95); MPV 11.6 fL (8.0-11.0); RBC 4.38 10^6/uL (3.93-5.22); RDW 12.7 % (11.7-14.6); RDW-SD 43.6 fL; WBC 5.64 10^3/uL (4.4-10.8)
[2025-03-16 21:43] LABS: ALT 178 U/L (10-49); AST 200 U/L (<34); Albumin 3.8 g/dL (3.4-5.0); Alkaline Phosphatase 146 U/L (46-116); Anion Gap 5.3 mmol/L (3-11); BUN 8 mg/dL (9-23); Bilirubin, Total 0.90 mg/dL (0.2-1.2); CO2 27.7 mmol/L (20.0-31.0); Calcium 9.2 mg/dL (8.3-10.6); Chloride 105 mmol/L (98-107); Glucose 73 mg/dL (74-106); Potassium 4.1 mmol/L (3.5-5.1); Sodium 138 mmol/L (136-145); Total Protein 7.8 g/dL (5.7-8.2)
[2025-03-16 21:49] LABS: Platelet Count 47 10^3/uL (130-400)
== END 2025-03-16 15:40 | disposition home or self-care (01) ==
LOC: NCHCN 15:39
PROVIDERS: PCP Family Medicine
DX: I10 Essential (primary) hypertension (principal); D64.9 Anemia, unspecified
CPT/HCPCS: 80053; 85025

== ENCOUNTER 2025-04-15 14:56 | Outpatient (REF) | payer MEDICAID, SELFPAY ==
[2025-04-15 15:43] LABS: INR 1.2 (0.9-1.1); PTT Activated 26.2 sec (20.6-30.2); Prothrombin Time 11.6 sec (9.1-11.1)
[2025-04-15 16:02] LABS: ALT 159 U/L (10-49); AST 207 U/L (<34); Albumin 3.6 g/dL (3.2-5.0); Alkaline Phosphatase 115 U/L (46-116); Anion Gap 7.3 mmol/L (3-11); BUN 10 mg/dL (9-23); Bilirubin, Total 1.0 mg/dL (0.2-1.2); CO2 24.7 mmol/L (20.0-31.0); Calcium 8.6 mg/dL (8.3-10.6); Chloride 105 mmol/L (98-107); Glucose 68 mg/dL (74-106); Potassium 4.0 mmol/L (3.5-5.1); Sodium 137 mmol/L (136-145); Total Protein 7.7 g/dL (5.7-8.2)
[2025-04-15 16:03] LABS: Iron 133 ug/dL (50-170); Total Iron Binding Capacity 338 ug/dL (250-425)
[2025-04-15 16:05] LABS: Ferritin 258 ng/mL (7-271); Folate 7.1 ng/mL (>5.38); Vitamin B12 536 pg/mL (211-911)
[2025-04-15 22:12] LABS: HBs Antibody, Quant 27.8 mIU/mL (See Note); Hepatitis B Surface Ab Positive (See Note)
[2025-04-15 22:50] LABS: HIV-1/2 Ag & Ab Screen Negative (Negative)
[2025-04-15 22:55] LABS: Hep A Total Ab w Rflx IgM Positive (Negative)
[2025-04-15 22:58] LABS: Hepatitis A Antibody IgM Negative (Negative); Hepatitis C Ab w Rflx HCV PCR Reactive (Negative)
[2025-04-18 11:14] LABS: Alpha 1 Antitrypsin,Serum 158 mg/dL (90-200)
[2025-04-18 12:13] LABS: HCV RNA Detection Quantitative 4690000 IU/mL (Undetected); HCV RNA Qualitative Detected (Undetected)
== END 2025-04-15 14:57 | disposition home or self-care (01) ==
LOC: NCHCN 14:56
PROVIDERS: PCP Family Medicine
DX: B18.2 Chronic viral hepatitis C (principal); D69.6 Thrombocytopenia, unspecified; K74.60 Unspecified cirrhosis of liver; F10.20 Alcohol dependence, uncomplicated; B19.20 Unspecified viral hepatitis C without hepatic coma; D64.9 Anemia, unspecified
CPT/HCPCS: 80053; 85027; 86704; 86706; 86709; 86803; 87340; 87389; 87522; 82103; 82105; 82607; 82728; 82746; 83540; 83550; 85610; 85730